=== PATIENT | female | born 1970 | race Caucasian/White ===

== ENCOUNTER → 2018-05-07 | Outpatient (CLI) | payer BC ==
[~2018-05-07] MED LIST: CYSTEX TABLET1 EACH PO; DEXA4 PO; HERCEPTIN IV; KETO10 PO; Lorazepam1 MG PO; METO10 PO; ONDA4ODT MM; OXYACE5T PO; PROM25 PO; TAMO10 PO; TAMS.4ER PO
== END | disposition home or self-care (01) ==
LOC: PLD 14:04 → LAB SHORT 14:04
DX: D04.5 Carcinoma in situ of skin of trunk (principal); L98.9 Disorder of the skin and subcutaneous tissue, unspecified
CPT/HCPCS: 88305; 88312

== ENCOUNTER → 2023-01-16 | Outpatient (CLI) | payer OTHER | END | disposition home or self-care (01) | LOC: LAB SHORT 11:56 → PLD 11:56 | DX: L82.0 Inflamed seborrheic keratosis (principal) | CPT/HCPCS: 88305 ==

== ENCOUNTER → 2024-05-25 | Outpatient (CLI) | payer OTHER | LOC: LAB SHORT 10:27 → LAB 10:27 | DX: R30.0 Dysuria (principal) | CPT/HCPCS: 87077; 87086; 87186 ==

== ENCOUNTER → 2024-06-05 | Outpatient (CLI) | payer OTHER | LOC: LAB SHORT 15:30 | DX: R30.0 Dysuria (principal); R35.0 Frequency of micturition | CPT/HCPCS: 87077; 87086; 87186 ==